=== PATIENT | female | born 1940 | race Asian ===

== ENCOUNTER 2019-06-07 09:12 | Day surgery (SDC) | payer OTHER | END 2019-06-07 12:40 | disposition home or self-care (01) | LOC: OR 09:12 | PROC: 3E0U33Z Introduction of Anti-inflammatory into Joints, Percutaneous Approach (ICD-10-PCS; principal; 2019-06-07) | PROC: 3E0U3BZ Introduction of Anesthetic Agent into Joints, Percutaneous Approach (ICD-10-PCS; 2019-06-07) | DX: M53.3 Sacrococcygeal disorders, not elsewhere classified (principal); M46.1 Sacroiliitis, not elsewhere classified | CPT/HCPCS: J1020; J3490; J7060 ==

== ENCOUNTER 2020-03-20 08:05 | Day surgery (SDC) | payer OTHER ==
[~2020-03-20] VITALS: Ht 30.5 cm; Wt 0.5 kg
== END 2020-03-20 09:37 | disposition home or self-care (01) ==
LOC: OR 08:05
PROC: 3E0R33Z Introduction of Anti-inflammatory into Spinal Canal, Percutaneous Approach (ICD-10-PCS; principal; 2020-03-20)
PROC: 3E0R3BZ Introduction of Anesthetic Agent into Spinal Canal, Percutaneous Approach (ICD-10-PCS; 2020-03-20)
DX: M53.3 Sacrococcygeal disorders, not elsewhere classified (principal); M46.1 Sacroiliitis, not elsewhere classified
CPT/HCPCS: J1020; J3490